=== PATIENT | female | born 1950 | race Caucasian/White ===

== ENCOUNTER 2019-07-29 17:50 | Inpatient (IN) | payer MEDICARE ==
[2019-07-29] MEDS: traZODone 50 MG TAB PO PRN (22:45)
[2019-07-29 23:54] LABS: Basophils # (Auto) 0.1 K/mm3 (0.0-0.1); Basophils % (Auto) 0.6 % (0.0-1.8); Eosinophils # (Auto) 0.1 K/mm3 (0.0-0.4); Eosinophils % (Auto) 0.8 % (0.0-4.3); Hematocrit 40.5 % (30.3-42.9); Hemoglobin 13.9 gm/dl (10.1-14.3); Lymphocytes # (Auto) 2.6 K/mm3 (1.2-5.4); Lymphocytes % (Auto) 25.1 % (13.4-35.0); Mean Corpuscular HGB Conc 34 % (30-34); Mean Corpuscular Volume 100 fl (79-97); Monocytes % (Auto) 9.8 % (0.0-7.3); Platelet Count 309 K/mm3 (140-440); Red Blood Count 4.04 M/mm3 (3.65-5.03); Red Cell Distribution Width 14.4 % (13.2-15.2)
[2019-07-30 01:19] LABS: Alanine Aminotransferase 12 units/L (7-56); Albumin 4.1 g/dL (3.9-5); BUN/Creatinine Ratio 18; Blood Urea Nitrogen 18 mg/dL (7-17); Calcium 9.4 mg/dL (8.4-10.2); Hemolysis Index 7
[2019-07-30 02:13] LABS: Chol/HDL Ratio 2.17 %; HDL Cholesterol 76 mg/dL (40-59); LDL Cholesterol,Direct 82 mg/dL (50-130)
--- NOTE | 2019-07-30 08:29 | History and Physical Report ---
GP History & Physical - History of Present Illness Date of admission: 07/29/19 Date of Examination: 07/30/19 Reason for Admission: Danger to self, Severe anxiety/depression Chief Complaint: Wanting to swallow a bottle of pills History of Present Illness: A 69yr old , retired female admitted to the unit from [facility] on a 1012 for suicidal ideation. Pt arrived on the unit at 0 07/29/19 accompanied by EMS staff. pt is ambulatory with steady gait; pt reported that she is here because of suicidal thoughts with plan to OD on medication. Pt is alert and oriented x4, , tearful but calm and cooperative, denies suicidal thought at this time, denies HI, denies A/V/H, pt has history of depression and stated that she stopped taking all her psych medication about 6months ago because they were so much and were not helping with her depression. pt stated she just want the right medication for her depression. Pt has hx of HTN, skin cancer, high cholesterol, and sleep Apnea, sleep with cpap machine but has not slept with it for 2days. Met with patient this morning. Pt started that she does not feel like herself and hasn't in a while. Pt then became tearful as she explained her reason for b shelbi admitted here. Pt stated that she was experiencing some issues with her son's regarding her granddaughter, which caused her to become stressed, angry and frustrated. Pt stated that she has no chace in her life, this being the reason for her wanting to OD on the medications. "Nov/Dec I was going to see a psychiatrist like I was really trying". Pt states that she no longer sees a Psychiatrist due to the fact that she was prescribed multiple medications that was not improving her symptoms at all and made her gain 40lbs. Pt list the meds that she have tried in the past as, Effexer, Trintellix, Seroquel, Paxil and trazodone. Pt stated after a while she decided to wean herself off the medication by cutting down weekly until she was finally off completely. Pt expresses that she understands the goal here is for her to get better and she plans to be complaint with her medications moving forward. Pt denies SI at this time, pt denies hallucination, paranoia. Pt states that she does have a gun and a permit to carry but gun is locked away and stored. Pt is sleeping well and appetite is well. Pt also discloses that she has a family history of mental health, pt smokes, denies drug use, and drinks occasionally. MSE Orientation: A&O x4 Affect: depressed Mood: congruent with affect Thought Process: organized Perceptions: reality Speech: normal Concentration: focused Motor activity: normal Level of consciousness: alert and aware Memory: intact Interaction: cooperative and pleasant Mini-Mental Status Exam: 30 out of 30 Legal Status: Voluntary Patient Problems: Current Active Problems MDD (major depressive disorder), recurrent episode, severe (Acute) Reaction to Hospitalization: Accepting Medications and Allergies Allergies Allergy/AdvReac Type Severity Reaction Status Date / Time codeine Allergy Unknown Verified 07/29/19 21:49 Home Medications Medication Instructions Recorded Confirmed Last Taken Type Levothyroxine 75 mcg PO DAILY 07/30/19 07/30/19 Unknown History Pravastatin 40 mg PO QHS 07/30/19 07/30/19 Unknown History amLODIPine 5 mg PO DAILY 07/30/19 07/30/19 Unknown History Active Meds: Active Medications Amlodipine Besylate (Amlodipine) 5 mg PO QDAY [facility] Clonazepam (Klonopin) 0.25 mg PO BID [facility] Divalproex Sodium (Depakote Er) 500 mg PO HS [facility] Duloxetine HCl (Cymbalta) 60 mg PO QDAY [facility] Hydroxyzine Pamoate (Vistaril) 50 mg PO Q6H PRN PRN Reason: Anxiety Levothyroxine Sodium (Synthroid) 75 mcg PO DAILY@0600 [facility] Melatonin (Melatonin) 10 mg PO QHS [facility] Pravastatin Sodium (Pravachol) 40 mg PO QHS [facility] Trazodone HCl (Desyrel) 50 mg PO QHS PRN PRN Reason: Insomnia Last Admin: 07/29/19 22:45 Dose: 50 mg Documented by: Substance History - Substance History Drug Use: none Hx Tobacco Use: Yes Alcohol Use: Yes Past psychiatric history - Past Medical History Past Medical History: hypertension, other (High Cholestorol, Sleep Apnea, Skin Cancer) Past Surgical History: No surgical history - past Psychiatric treatment and history Psych: Anxiety, Depression - Social History Social history: , lives with family, smoking Review of Systems Psychiatric: anxiety, suicidal ideation, depression, hopelessness, anxiety attacks, sadness/tearfullness Results - Results Labs/Vitals: Laboratory Last Values WBC 10.3 K/mm3 (4.5-11.0) 07/29/19 23:13 RBC 4.04 M/mm3 (3.65-5.03) 07/29/19 23:13 Hgb 13.9 gm/dl (10.1-14.3) 07/29/19 23:13 Hct 40.5 % (30.3-42.9) 07/29/19 23:13 MCV 100 fl (79-97) H 07/29/19 23:13 MCH 34 pg (28-32) H 07/29/19 23:13 MCHC 34 % (30-34) 07/29/19 23:13 RDW 14.4 % (13.2-15.2) 07/29/19 23:13 Plt Count 309 K/mm3 (140-440) 07/29/19 23:13 Lymph % (Auto) 25.1 % (13.4-35.0) 07/29/19 23:13 [place] % (Auto) 9.8 % (0.0-7.3) H 07/29/19 23:13 Eos % (Auto) 0.8 % (0.0-4.3) 07/29/19 23:13 Baso % (Auto) 0.6 % (0.0-1.8) 07/29/19 23:13 Lymph # 2.6 K/mm3 (1.2-5.4) 07/29/19 23:13 [place] # 1.0 K/mm3 (0.0-0.8) H 07/29/19 23:13 Eos # 0.1 K/mm3 (0.0-0.4) 07/29/19 23:13 Baso # 0.1 K/mm3 (0.0-0.1) 07/29/19 23:13 Seg Neutrophils % 63.7 % (40.0-70.0) 07/29/19 23:13 Seg Neutrophils # 6.6 K/mm3 (1.8-7.7) 07/29/19 23:13 Sodium 142 mmol/L (137-145) 07/29/19 23:13 Potassium 4.2 mmol/L (3.6-5.0) 07/29/19 23:13 Chloride 105.5 mmol/L (98-107) 07/29/19 23:13 Carbon Dioxide 22 mmol/L (22-30) 07/29/19 23:13 Anion Gap 19 mmol/L 07/29/19 23:13 BUN 18 mg/dL (7-17) H 07/29/19 23:13 Creatinine 1.0 mg/dL (0.7-1.2) 07/29/19 23:13 Estimated GFR 55 ml/min 07/29/19 23:13 BUN/Creatinine Ratio 18 % 07/29/19 23:13 Glucose 108 mg/dL (65-100) H 07/29/19 23:13 POC Glucose 109 (70-105) H 07/29/19 23:47 Hemoglobin A1c 5.5 % (4-6) 07/29/19 23:13 Calcium 9.4 mg/dL (8.4-10.2) 07/29/19 23:13 Total Bilirubin < 0.20 mg/dL (0.1-1.2) 07/29/19 23:13 AST 19 units/L (5-40) 07/29/19 23:13 ALT 12 units/L (7-56) 07/29/19 23:13 Alkaline Phosphatase 83 units/L (35-129) 07/29/19 23:13 Total Protein 6.8 g/dL (6.3-8.2) 07/29/19 23:13 Albumin 4.1 g/dL (3.9-5) 07/29/19 23:13 Albumin/Globulin Ratio 1.5 % 07/29/19 23:13 Triglycerides 131 mg/dL (2-149) 07/29/19 23:13 Cholesterol 165 mg/dL (50-199) 07/29/19 23:13 LDL Cholesterol Direct 82 mg/dL (50-130) 07/29/19 23:13 HDL Cholesterol 76 mg/dL (40-59) H 07/29/19 23:13 Cholesterol/HDL Ratio 2.17 % 07/29/19 23:13 Last Vital Signs Temp 97.7 F 07/29/19 22:06 Pulse 97 H 07/29/19 22:06 Resp 18 07/29/19 22:06 BP 125/79 07/29/19 22:06 Pulse Ox 97 07/29/19 22:06 Physical Examination - Constitutional Vitals: Vital Signs Temp Pulse Resp BP Pulse Ox 97.7 F 97 H 18 125/79 97 07/29/19 22:06 07/29/19 22:06 07/29/19 22:06 07/29/19 22:06 07/29/19 22:06 Temperature -Last 24 Hours Temperature 97.7 F General appearance: Present: no acute distress, well-nourished - EENT Eyes: Present: PERRL, EOM intact ENT: hearing intact, clear oral mucosa - Neck Neck: Present: supple, normal ROM - Respiratory Respiratory effort: normal Mental Status Exam - Vital signs Last Vital Signs Temp 97.7 F 07/29/19 22:06 Pulse 97 H 07/29/19 22:06 Resp 18 07/29/19 22:06 BP 125/79 07/29/19 22:06 Pulse Ox 97 07/29/19 22:06 - Exam Orientation: time, place, person Affect: depressed, anxious Mood: congruent with affect Thought Process: Intact Perceptions: none Speech: normal rate and pattern Concentration: focused Motor activity: normal Level of consciousness: alert Memory: Intact Sleep Symptoms: Insomnia Interaction: cooperative Mini mental status exam(if necessary): 24-30 Assessment and Plan - Psychiatric problem (1) MDD (major depressive disorder), recurrent episode, severe Current Visit: Yes Status: Acute plan to address problem: Patient will be admitted for inpatient psychiatric evaluation, medication adjustment and close monitoring The patient's behavior, mood, sleep and appetite will be closely monitored. Patient will be enrolled in individual and group therapeutic sessions and encouraged to attend. Patient will be provided with a safe and structured environment. Patient's physical health needs will be addressed by the Hospitalist. Social Assessment will be completed and the Standards Analyst will work with patient and family to ensure a suitable and safe disposition Medication adjustment will be made as clinically indicated The patient agreed on the treatment plan, understood the risk, benefit, alternative treatment, potential consequence of no treatment, and gave informed consent. Physician Certification - Certification Statement Physician Certification Statement: This is an acknowledgement statement that REGINA BURGOS is a 69 year old F who requires inpatient psychiatric admission for treatment which could reasonably be expected to improve the patient's condition for Depression Estimated period of time patient will need to remain in the hospital: 7 days Plan for post-hospital care: Out-patient care
[2019-07-30 09:16] LABS: Bilirubin,Urine NEG (Negative); Blood,Urine NEG (Negative); Color,Urine Yellow (Yellow); Mucus,Urine FEW /HPF; Protein,Urine <15 mg/dL mg/dL (Negative); Urobilinogen,Urine < 2.0 mg/dL (<2.0)
[2019-07-30] MEDS: amLODIPine 5 MG TAB PO SCH (09:59)
[2019-07-30] MEDS: DULoxetine 30 MG CAP PO SCH (10:00)
[2019-07-30] MEDS: clonazePAM 0.5 MG TAB PO SCH ×2 (10:00→21:05)
[2019-07-30] MEDS ORDERED: LEVOTHYROXINE 75 MCG PO SCH (10:00)
[2019-07-30] MEDS ORDERED: NON-FORMULARY EACH (Amlodipine 5 MG) PO SCH (10:00)
--- NOTE | 2019-07-30 13:53 | Consultation ---
History of Present Illness - Reason for Consult Consult date: 07/30/19 Hypertension, hyperlipidemia,hypothyroidism Requesting physician: MILENA ALICEA - History of Present Illness Patient is 69 yo with hypertension, hyperlipidemia, hypothyroidism. She was admitted because of depression, suicidal thoughts. The medical service has been consulted to manage co-morbidities, hypertension,hyperlipidemia, hypothyroidism. Currently, no chest pain, no shortness of breath. She states she has been compliant with her medications. Past History Past Medical History: hypertension, hyperlipidemia, hypothyroidism, other (High Cholestorol, Sleep Apnea, Skin Cancer) Past Surgical History: No surgical history Social history: , lives with family, smoking Family history: no significant family history Medications and Allergies Allergies Allergy/AdvReac Type Severity Reaction Status Date / Time codeine Allergy Unknown Verified 07/29/19 21:49 Home Medications Medication Instructions Recorded Confirmed Last Taken Type Levothyroxine 75 mcg PO DAILY 07/30/19 07/30/19 Unknown History Pravastatin 40 mg PO QHS 07/30/19 07/30/19 Unknown History amLODIPine 5 mg PO DAILY 07/30/19 07/30/19 Unknown History DULoxetine [Cymbalta] 60 mg PO QDAY #60 capsule 08/02/19 Unknown Rx Divalproex ER [Depakote ER] 500 mg PO HS #30 tablet 08/02/19 Unknown Rx Melatonin [Melatonin 5MG TAB] 10 mg PO QHS #30 tablet 08/02/19 Unknown Rx Nicotine [Habitrol] 21 mg TD QDAY #30 patch 08/02/19 Unknown Rx clonazePAM [KlonoPIN] 0.25 mg PO BID #14 tablet 08/02/19 Unknown Rx hydrOXYzine PAMOATE [Vistaril] 50 mg PO Q6H PRN #60 capsule 08/02/19 Unknown Rx traZODone [Desyrel] 50 mg PO QHS PRN #30 tablet 08/02/19 Unknown Rx Active Meds: Active Medications Amlodipine Besylate (Amlodipine) 5 mg PO QDAY [facility] Last Admin: 07/30/19 09:59 Dose: 5 mg Documented by: Clonazepam (Klonopin) 0.25 mg PO BID [facility] Last Admin: 07/30/19 10:00 Dose: 0.25 mg Documented by: Divalproex Sodium (Depakote Er) 500 mg PO HS [facility] Duloxetine HCl (Cymbalta) 60 mg PO QDAY [facility] Last Admin: 07/30/19 10:00 Dose: 60 mg Documented by: Hydroxyzine Pamoate (Vistaril) 50 mg PO Q6H PRN PRN Reason: Anxiety Last Admin: 07/30/19 10:04 Dose: 50 mg Documented by: Levothyroxine Sodium (Synthroid) 75 mcg PO DAILY@0600 [facility] Melatonin (Melatonin) 10 mg PO QHS [facility] Pravastatin Sodium (Pravachol) 40 mg PO QHS [facility] Trazodone HCl (Desyrel) 50 mg PO QHS PRN PRN Reason: Insomnia Last Admin: 07/29/19 22:45 Dose: 50 mg Documented by: Review of Systems All systems: negative (No fever, no headache, no chest pain, all other systems reviewed and are negative) Exam - Physical Exam Narrative exam: Gen: Not in acute distress, sitting up in bed HEENT: Normocephalic, atraumatic Neck: supple, no JVD Heart: S1 and S2 reg, no murmurs, rubs or gallop Lungs: Clear to auscultation bilaterally, Abd: soft, non tender, non distended, normal BS, Ext: No edema, no clubbing, no cyanosis Neuro: Awake, alert, oriented X 3, no focal neurological signs - Constitutional Vitals: Temp Pulse Resp BP Pulse Ox 98.5 F 80 18 126/69 97 07/30/19 09:20 07/30/19 09:59 07/30/19 09:20 07/30/19 09:59 07/30/19 09:20 Results - Labs CBC & Chem 7: 07/29/19 23:13 07/29/19 23:13 Labs: Abnormal lab results 07/29/19 07/29/19 07/29/19 Range/Units 23:13 23:13 23:47 MCV 100 H (79-97) fl MCH 34 H (28-32) pg [place] % (Auto) 9.8 H (0.0-7.3) % [place] # 1.0 H (0.0-0.8) K/mm3 BUN 18 H (7-17) mg/dL Glucose 108 H (65-100) mg/dL POC Glucose 109 H (70-105) HDL Cholesterol 76 H (40-59) mg/dL Assessment and Plan Major depression. Admitted to GeriPsych Unit Anti-depression meds per Psychiatrist Suicidal thoughts Hypertension Resumed Norvasc Hyperlipidemai On statin Hypothyroidism On Levothyroxine 75 mcg daily Full code status Thanks Dr. Alicea for consulting us. Will follow peripherally.
[2019-07-30] MEDS: NICOTINE 21 MG/24 HR PATCH TD SCH (16:11)
[2019-07-30] MEDS: LEVOTHYROXINE 75 MCG TAB PO SCH (19:31)
[2019-07-30] MEDS: traZODone 50 MG TAB PO PRN (21:05)
[2019-07-30] MEDS: DIVALPROEX ER 500 MG TAB PO SCH (21:05)
[2019-07-30] MEDS: PRAVASTATIN 40 MG TAB PO SCH (21:06)
[2019-07-30] MEDS: MELATONIN 5 MG TAB PO SCH (21:06)
[2019-07-30] MEDS ORDERED: NON-FORMULARY EACH (Pravastatin 40 MG) PO SCH (22:00)
[2019-07-31] MEDS: LEVOTHYROXINE 75 MCG TAB PO SCH (06:00)
--- NOTE | 2019-07-31 07:53 | Progress Note ---
Subjective Date of service: 07/31/19 Principal diagnosis: Severe Anxiety/Depression Subjective Comment: Pt presented as pleasant with good morning greetings. Pt stated that shes feels better and a little more calm. Pt denies SI and discussed TMS as a treatment option moving forward. Pt only concern was how long she would be here. Pt plans to continue seeing an outpatient psychiatrist once discharged. Pt stated that she already feel herself stabilizing from the medications she has received on the unit. PT is med complaint, denies SI/HI/AVH. Per nursing notes: Pt is experiencing frustration and anger with family when making calls home but appears to be pleasant and cooperative with staff. Pt is eating well and sleeping well throughout the night. MSE Orientation: A&O x4 Affect: Pleasant Mood: congruent with affect Thought Process: Organized Perceptions: Reality Speech: normal Concentration: focused Motor activity: normal Level of consciousness: alert Memory: intact Interaction: cooperative Objective - Criteria for Continued Treatment Criteria for Continued Treatment: Improving Level of Functioning - Mental Status Mental Status: Oriented x 3 - Objective Observation Participation Level: Full Assessment and Plan - Patient Problems (1) MDD (major depressive disorder), recurrent episode, severe Current Visit: Yes Status: Acute Plan to address problem: Patient will be admitted for inpatient psychiatric evaluation, medication adjustment and close monitoring The patient's behavior, mood, sleep and appetite will be closely monitored. Patient will be enrolled in individual and group therapeutic sessions and encouraged to attend. Patient will be provided with a safe and structured environment. Patient's physical health needs will be addressed by the Hospitalist. Social Assessment will be completed and the Flight Simulator Teacher will work with patient and family to ensure a suitable and safe disposition Medication adjustment will be made as clinically indicated The patient agreed on the treatment plan, understood the risk, benefit, alternative treatment, potential consequence of no treatment, and gave informed consent. Medications and Allergies Allergies Allergy/AdvReac Type Severity Reaction Status Date / Time codeine Allergy Unknown Verified 07/29/19 21:49 Home Medications Medication Instructions Recorded Confirmed Last Taken Type Levothyroxine 75 mcg PO DAILY 07/30/19 07/30/19 Unknown History Pravastatin 40 mg PO QHS 07/30/19 07/30/19 Unknown History amLODIPine 5 mg PO DAILY 07/30/19 07/30/19 Unknown History Active Meds: Active Medications Amlodipine Besylate (Amlodipine) 5 mg PO QDAY [facility] Last Admin: 07/30/19 09:59 Dose: 5 mg Documented by: Clonazepam (Klonopin) 0.25 mg PO BID [facility] Last Admin: 07/30/19 21:05 Dose: 0.25 mg Documented by: Divalproex Sodium (Depakote Er) 500 mg PO HS [facility] Last Admin: 07/30/19 21:05 Dose: 500 mg Documented by: Duloxetine HCl (Cymbalta) 60 mg PO QDAY [facility] Last Admin: 07/30/19 10:00 Dose: 60 mg Documented by: Hydroxyzine Pamoate (Vistaril) 50 mg PO Q6H PRN PRN Reason: Anxiety Last Admin: 07/30/19 10:04 Dose: 50 mg Documented by: Levothyroxine Sodium (Synthroid) 75 mcg PO DAILY@0600 [facility] Last Admin: 07/31/19 06:00 Dose: 75 mcg Documented by: Melatonin (Melatonin) 10 mg PO QHS [facility] Last Admin: 07/30/19 21:06 Dose: 10 mg Documented by: Nicotine (Habitrol) 21 mg TD QDAY [facility] Last Admin: 07/30/19 16:11 Dose: 21 mg Documented by: Pravastatin Sodium (Pravachol) 40 mg PO QHS [facility] Last Admin: 07/30/19 21:06 Dose: 40 mg Documented by: Trazodone HCl (Desyrel) 50 mg PO QHS PRN PRN Reason: Insomnia Last Admin: 07/30/19 21:05 Dose: 50 mg Documented by: Results - Results Labs/Vitals: Laboratory Last Values WBC 10.3 K/mm3 (4.5-11.0) 07/29/19 23:13 RBC 4.04 M/mm3 (3.65-5.03) 07/29/19 23:13 Hgb 13.9 gm/dl (10.1-14.3) 07/29/19 23:13 Hct 40.5 % (30.3-42.9) 07/29/19 23:13 MCV 100 fl (79-97) H 07/29/19 23:13 MCH 34 pg (28-32) H 07/29/19 23:13 MCHC 34 % (30-34) 07/29/19 23:13 RDW 14.4 % (13.2-15.2) 07/29/19 23:13 Plt Count 309 K/mm3 (140-440) 07/29/19 23:13 Lymph % (Auto) 25.1 % (13.4-35.0) 07/29/19 23:13 [place] % (Auto) 9.8 % (0.0-7.3) H 07/29/19 23:13 Eos % (Auto) 0.8 % (0.0-4.3) 07/29/19 23:13 Baso % (Auto) 0.6 % (0.0-1.8) 07/29/19 23:13 Lymph # 2.6 K/mm3 (1.2-5.4) 07/29/19 23:13 [place] # 1.0 K/mm3 (0.0-0.8) H 07/29/19 23:13 Eos # 0.1 K/mm3 (0.0-0.4) 07/29/19 23:13 Baso # 0.1 K/mm3 (0.0-0.1) 07/29/19 23:13 Seg Neutrophils % 63.7 % (40.0-70.0) 07/29/19 23:13 Seg Neutrophils # 6.6 K/mm3 (1.8-7.7) 07/29/19 23:13 Sodium 142 mmol/L (137-145) 07/29/19 23:13 Potassium 4.2 mmol/L (3.6-5.0) 07/29/19 23:13 Chloride 105.5 mmol/L (98-107) 07/29/19 23:13 Carbon Dioxide 22 mmol/L (22-30) 07/29/19 23:13 Anion Gap 19 mmol/L 07/29/19 23:13 BUN 18 mg/dL (7-17) H 07/29/19 23:13 Creatinine 1.0 mg/dL (0.7-1.2) 07/29/19 23:13 Estimated GFR 55 ml/min 07/29/19 23:13 BUN/Creatinine Ratio 18 % 07/29/19 23:13 Glucose 108 mg/dL (65-100) H 07/29/19 23:13 POC Glucose 109 (70-105) H 07/29/19 23:47 Hemoglobin A1c 5.5 % (4-6) 07/29/19 23:13 Calcium 9.4 mg/dL (8.4-10.2) 07/29/19 23:13 Total Bilirubin < 0.20 mg/dL (0.1-1.2) 07/29/19 23:13 AST 19 units/L (5-40) 07/29/19 23:13 ALT 12 units/L (7-56) 07/29/19 23:13 Alkaline Phosphatase 83 units/L (35-129) 07/29/19 23:13 Total Protein 6.8 g/dL (6.3-8.2) 07/29/19 23:13 Albumin 4.1 g/dL (3.9-5) 07/29/19 23:13 Albumin/Globulin Ratio 1.5 % 07/29/19 23:13 Triglycerides 131 mg/dL (2-149) 07/29/19 23:13 Cholesterol 165 mg/dL (50-199) 07/29/19 23:13 LDL Cholesterol Direct 82 mg/dL (50-130) 07/29/19 23:13 HDL Cholesterol 76 mg/dL (40-59) H 07/29/19 23:13 Cholesterol/HDL Ratio 2.17 % 07/29/19 23:13 Urine Color Yellow (Yellow) 07/30/19 08:05 Urine Turbidity Clear (Clear) 07/30/19 08:05 Urine pH 6.0 (5.0-7.0) 07/30/19 08:05 Ur Specific [place] 1.011 (1.003-1.030) 07/30/19 08:05 Urine Protein <15 mg/dl mg/dL (Negative) 07/30/19 08:05 Urine Glucose (UA) Neg mg/dL (Negative) 07/30/19 08:05 Urine Ketones Neg mg/dL (Negative) 07/30/19 08:05 Urine Blood Neg (Negative) 07/30/19 08:05 Urine Nitrite Neg (Negative) 07/30/19 08:05 Urine Bilirubin Neg (Negative) 07/30/19 08:05 Urine Urobilinogen < 2.0 mg/dL (<2.0) 07/30/19 08:05 Ur Leukocyte Esterase Neg (Negative) 07/30/19 08:05 Urine WBC (Auto) 1.0 /HPF (0.0-6.0) 07/30/19 08:05 Urine RBC (Auto) 1.0 /HPF (0.0-6.0) 07/30/19 08:05 U Epithel Cells (Auto) < 1.0 /HPF (0-13.0) 07/30/19 08:05 Urine Mucus Few /HPF 07/30/19 08:05 Last Vital Signs Temp 98.5 F 07/30/19 09:20 Pulse 80 07/30/19 09:59 Resp 18 07/30/19 09:20 BP 126/69 07/30/19 09:59 Pulse Ox 97 07/30/19 09:20
[2019-07-31] MEDS: amLODIPine 5 MG TAB PO SCH (09:33)
[2019-07-31] MEDS: clonazePAM 0.5 MG TAB PO SCH ×2 (09:34→21:02)
[2019-07-31] MEDS: DULoxetine 30 MG CAP PO SCH (09:35)
[2019-07-31] MEDS: NICOTINE 21 MG/24 HR PATCH TD SCH (09:35)
[2019-07-31] MEDS: PRAVASTATIN 40 MG TAB PO SCH (21:03)
[2019-07-31] MEDS: traZODone 50 MG TAB PO PRN (21:03)
[2019-07-31] MEDS: MELATONIN 5 MG TAB PO SCH (21:03)
[2019-07-31] MEDS: DIVALPROEX ER 500 MG TAB PO SCH (21:03)
[2019-08-01] MEDS: LEVOTHYROXINE 75 MCG TAB PO SCH (06:18)
--- NOTE | 2019-08-01 08:36 | Progress Note ---
Subjective Date of service: 08/01/19 Principal diagnosis: Severe Anxiety/Depression Subjective Comment: Patient seen in her room this morning. Patient reports that she gets very frustrated when things aren't clean and it triggers her condition. "I think I had a light bulb moment, I'm very organized so when things aren't a certain way it frustrates me. Like my proper is a cluster fuck". Patient when on stating that the problems with her son and his comes from their lack of cleanliness, not defrosting her freezer or picking her up in a dirty car. She also stated that she slept a lot better, is thinking much clearer and is not frustrated anymore. Pt appetite is good, she's eating well, med compliant and denies side effects. Per nursing note: Patient is alert and oriented x4, calm and cooperative, interacting well with peers and staff, very pleasant, consumed 100% of bed time snacks, slept well throughout the night for 8+ hours, compliant with medication, trazodone 50mg po given at bedtime for sleep as requested by patient, patient denies SI/HI, denies A/V/H, MSE Orientation: A&O x4 Affect: Pleasant Mood: congruent with affect Thought Process: Organized Perceptions: Reality Speech: normal Concentration: focused Motor activity: normal Level of consciousness: alert Memory: intact Interaction: cooperative Objective - Criteria for Continued Treatment Criteria for Continued Treatment: Improving Level of Functioning - Mental Status Mental Status: Oriented x 3 - Objective Observation Participation Level: Full Assessment and Plan - Patient Problems (1) MDD (major depressive disorder), recurrent episode, severe Current Visit: Yes Status: Acute Plan to address problem: Patient will be admitted for inpatient psychiatric evaluation, medication adjustment and close monitoring The patient's behavior, mood, sleep and appetite will be closely monitored. Patient will be enrolled in individual and group therapeutic sessions and encouraged to attend. Patient will be provided with a safe and structured environment. Patient's physical health needs will be addressed by the Hospitalist. Social Assessment will be completed and the Legal Support Specialist will work with patient and family to ensure a suitable and safe disposition Medication adjustment will be made as clinically indicated The patient agreed on the treatment plan, understood the risk, benefit, alternative treatment, potential consequence of no treatment, and gave informed consent. Medications and Allergies Allergies Allergy/AdvReac Type Severity Reaction Status Date / Time codeine Allergy Unknown Verified 07/29/19 21:49 Home Medications Medication Instructions Recorded Confirmed Last Taken Type Levothyroxine 75 mcg PO DAILY 07/30/19 07/30/19 Unknown History Pravastatin 40 mg PO QHS 07/30/19 07/30/19 Unknown History amLODIPine 5 mg PO DAILY 07/30/19 07/30/19 Unknown History Active Meds: Active Medications Amlodipine Besylate (Amlodipine) 5 mg PO QDAY [facility] Last Admin: 07/31/19 09:33 Dose: 5 mg Documented by: Clonazepam (Klonopin) 0.25 mg PO BID [facility] Last Admin: 07/31/19 21:02 Dose: 0.25 mg Documented by: Divalproex Sodium (Depakote Er) 500 mg PO [facility] Last Admin: 07/31/19 21:03 Dose: 500 mg Documented by: Duloxetine HCl (Cymbalta) 60 mg PO QDAY [facility] Last Admin: 07/31/19 09:35 Dose: 60 mg Documented by: Hydroxyzine Pamoate (Vistaril) 50 mg PO Q6H PRN PRN Reason: Anxiety Last Admin: 07/30/19 10:04 Dose: 50 mg Documented by: Levothyroxine Sodium (Synthroid) 75 mcg PO DAILY@0600 [facility] Last Admin: 08/01/19 06:18 Dose: 75 mcg Documented by: Melatonin (Melatonin) 10 mg PO QHS [facility] Last Admin: 07/31/19 21:03 Dose: 10 mg Documented by: Nicotine (Habitrol) 21 mg TD QDAY [facility] Last Admin: 07/31/19 09:35 Dose: 21 mg Documented by: Pravastatin Sodium (Pravachol) 40 mg PO QHS [facility] Last Admin: 07/31/19 21:03 Dose: 40 mg Documented by: Trazodone HCl (Desyrel) 50 mg PO QHS PRN PRN Reason: Insomnia Last Admin: 07/31/19 21:03 Dose: 50 mg Documented by: Results - Results Labs/Vitals: Laboratory Last Values WBC 10.3 K/mm3 (4.5-11.0) 07/29/19 23:13 RBC 4.04 M/mm3 (3.65-5.03) 07/29/19 23:13 Hgb 13.9 gm/dl (10.1-14.3) 07/29/19 23:13 Hct 40.5 % (30.3-42.9) 07/29/19 23:13 MCV 100 fl (79-97) H 07/29/19 23:13 MCH 34 pg (28-32) H 07/29/19 23:13 MCHC 34 % (30-34) 07/29/19 23:13 RDW 14.4 % (13.2-15.2) 07/29/19 23:13 Plt Count 309 K/mm3 (140-440) 07/29/19 23:13 Lymph % (Auto) 25.1 % (13.4-35.0) 07/29/19 23:13 [place] % (Auto) 9.8 % (0.0-7.3) H 07/29/19 23:13 Eos % (Auto) 0.8 % (0.0-4.3) 07/29/19 23:13 Baso % (Auto) 0.6 % (0.0-1.8) 07/29/19 23:13 Lymph # 2.6 K/mm3 (1.2-5.4) 07/29/19 23:13 [place] # 1.0 K/mm3 (0.0-0.8) H 07/29/19 23:13 Eos # 0.1 K/mm3 (0.0-0.4) 07/29/19 23:13 Baso # 0.1 K/mm3 (0.0-0.1) 07/29/19 23:13 Seg Neutrophils % 63.7 % (40.0-70.0) 07/29/19 23:13 Seg Neutrophils # 6.6 K/mm3 (1.8-7.7) 07/29/19 23:13 Sodium 142 mmol/L (137-145) 07/29/19 23:13 Potassium 4.2 mmol/L (3.6-5.0) 07/29/19 23:13 Chloride 105.5 mmol/L (98-107) 07/29/19 23:13 Carbon Dioxide 22 mmol/L (22-30) 07/29/19 23:13 Anion Gap 19 mmol/L 07/29/19 23:13 BUN 18 mg/dL (7-17) H 07/29/19 23:13 Creatinine 1.0 mg/dL (0.7-1.2) 07/29/19 23:13 Estimated GFR 55 ml/min 07/29/19 23:13 BUN/Creatinine Ratio 18 % 07/29/19 23:13 Glucose 108 mg/dL (65-100) H 07/29/19 23:13 POC Glucose 109 (70-105) H 07/29/19 23:47 Hemoglobin A1c 5.5 % (4-6) 07/29/19 23:13 Calcium 9.4 mg/dL (8.4-10.2) 07/29/19 23:13 Total Bilirubin < 0.20 mg/dL (0.1-1.2) 07/29/19 23:13 AST 19 units/L (5-40) 07/29/19 23:13 ALT 12 units/L (7-56) 07/29/19 23:13 Alkaline Phosphatase 83 units/L (35-129) 07/29/19 23:13 Total Protein 6.8 g/dL (6.3-8.2) 07/29/19 23:13 Albumin 4.1 g/dL (3.9-5) 07/29/19 23:13 Albumin/Globulin Ratio 1.5 % 07/29/19 23:13 Triglycerides 131 mg/dL (2-149) 07/29/19 23:13 Cholesterol 165 mg/dL (50-199) 07/29/19 23:13 LDL Cholesterol Direct 82 mg/dL (50-130) 07/29/19 23:13 HDL Cholesterol 76 mg/dL (40-59) H 07/29/19 23:13 Cholesterol/HDL Ratio 2.17 % 07/29/19 23:13 Urine Color Yellow (Yellow) 07/30/19 08:05 Urine Turbidity Clear (Clear) 07/30/19 08:05 Urine pH 6.0 (5.0-7.0) 07/30/19 08:05 Ur Specific [place] 1.011 (1.003-1.030) 07/30/19 08:05 Urine Protein <15 mg/dl mg/dL (Negative) 07/30/19 08:05 Urine Glucose (UA) Neg mg/dL (Negative) 07/30/19 08:05 Urine Ketones Neg mg/dL (Negative) 07/30/19 08:05 Urine Blood Neg (Negative) 07/30/19 08:05 Urine Nitrite Neg (Negative) 07/30/19 08:05 Urine Bilirubin Neg (Negative) 07/30/19 08:05 Urine Urobilinogen < 2.0 mg/dL (<2.0) 07/30/19 08:05 Ur Leukocyte Esterase Neg (Negative) 07/30/19 08:05 Urine WBC (Auto) 1.0 /HPF (0.0-6.0) 07/30/19 08:05 Urine RBC (Auto) 1.0 /HPF (0.0-6.0) 07/30/19 08:05 U Epithel Cells (Auto) < 1.0 /HPF (0-13.0) 07/30/19 08:05 Urine Mucus Few /HPF 07/30/19 08:05 Last Vital Signs Temp 97.5 F L 07/31/19 19:40 Pulse 90 07/31/19 19:40 Resp 20 07/31/19 19:40 BP 128/79 07/31/19 19:40 Pulse Ox 96 07/31/19 19:40
[2019-08-01] MEDS: DULoxetine 30 MG CAP PO SCH (10:04)
[2019-08-01] MEDS: clonazePAM 0.5 MG TAB PO SCH ×2 (10:05→21:07)
[2019-08-01] MEDS: amLODIPine 5 MG TAB PO SCH (10:05)
[2019-08-01] MEDS: NICOTINE 21 MG/24 HR PATCH TD SCH (10:06)
[2019-08-01] MEDS: DOCUSATE SODIUM 100 MG CAP PO SCH (21:06)
[2019-08-01] MEDS: PRAVASTATIN 40 MG TAB PO SCH (21:06)
[2019-08-01] MEDS: DIVALPROEX ER 500 MG TAB PO SCH (21:06)
[2019-08-01] MEDS: MELATONIN 5 MG TAB PO SCH (21:07)
[2019-08-02] MEDS: LEVOTHYROXINE 75 MCG TAB PO SCH (06:05)
[2019-08-02] MEDS: amLODIPine 5 MG TAB PO SCH (10:31)
[2019-08-02] MEDS: clonazePAM 0.5 MG TAB PO SCH ×2 (10:31→21:38)
[2019-08-02] MEDS: NICOTINE 21 MG/24 HR PATCH TD SCH (10:31)
[2019-08-02] MEDS: DOCUSATE SODIUM 100 MG CAP PO SCH ×2 (10:31→21:38)
[2019-08-02] MEDS: DULoxetine 30 MG CAP PO SCH (10:37)
--- NOTE | 2019-08-02 12:40 | Progress Note ---
Subjective Date of service: 08/02/19 Principal diagnosis: Severe Anxiety/Depression Subjective Comment: Patient seen in her room this morning. Patient reports mood is improving. She feels that her medications are beneficial. She denies SI/HI/AVH. Pt appetite is good, she's eating well, med compliant and denies side effects. Per nursing note: pt is A&O x4, appropriate, calm, cooperative w/ staff and compliant w/ meds. pt denies SI and AVH. pt is engaged during groups and is social with others. pt is independent w/ care and has a steady gait. pt has no voiced complaints to note at this time. will continue to monitor. MSE Orientation: A&O x4 Affect: Pleasant Mood: congruent with affect Thought Process: Organized Perceptions: wnl Speech: normal Concentration: focused Motor activity: normal Level of consciousness: alert Memory: intact Interaction: cooperative Objective - Criteria for Continued Treatment Criteria for Continued Treatment: Improving Level of Functioning, Stablizing Level of Functioning, Improving Emotional/Socia - Mental Status Mental Status: Alert - Objective Observation Participation Level: Full Assessment and Plan - Patient Problems (1) MDD (major depressive disorder), recurrent episode, severe Current Visit: Yes Status: Acute Plan to address problem: Patient will be admitted for inpatient psychiatric evaluation, medication adjustment and close monitoring The patient's behavior, mood, sleep and appetite will be closely monitored. Patient will be enrolled in individual and group therapeutic sessions and encouraged to attend. Patient will be provided with a safe and structured environment. Patient's physical health needs will be addressed by the Hospitalist. Social Assessment will be completed and the Instructional Support Assistant will work with patient and family to ensure a suitable and safe disposition Medication adjustment will be made as clinically indicated The patient agreed on the treatment plan, understood the risk, benefit, alternative treatment, potential consequence of no treatment, and gave informed consent. Medications and Allergies Allergies Allergy/AdvReac Type Severity Reaction Status Date / Time codeine Allergy Unknown Verified 07/29/19 21:49 Home Medications Medication Instructions Recorded Confirmed Last Taken Type Levothyroxine 75 mcg PO DAILY 07/30/19 07/30/19 Unknown History Pravastatin 40 mg PO QHS 07/30/19 07/30/19 Unknown History amLODIPine 5 mg PO DAILY 07/30/19 07/30/19 Unknown History Active Meds: Active Medications Amlodipine Besylate (Amlodipine) 5 mg PO QDAY [facility] Last Admin: 08/02/19 10:31 Dose: 5 mg Documented by: Clonazepam (Klonopin) 0.25 mg PO BID [facility] Last Admin: 08/02/19 10:31 Dose: 0.25 mg Documented by: Divalproex Sodium (Depakote Er) 500 mg PO [facility] Last Admin: 08/01/19 21:06 Dose: 500 mg Documented by: Docusate Sodium (Colace) 100 mg PO BID [facility] Last Admin: 08/02/19 10:31 Dose: 100 mg Documented by: Duloxetine HCl (Cymbalta) 60 mg PO QDAY [facility] Last Admin: 08/02/19 10:37 Dose: 60 mg Documented by: Hydroxyzine Pamoate (Vistaril) 50 mg PO Q6H PRN PRN Reason: Anxiety Last Admin: 07/30/19 10:04 Dose: 50 mg Documented by: Levothyroxine Sodium (Synthroid) 75 mcg PO DAILY@0600 [facility] Last Admin: 08/02/19 06:05 Dose: 75 mcg Documented by: Melatonin (Melatonin) 10 mg PO QHS [facility] Last Admin: 08/01/19 21:07 Dose: 10 mg Documented by: Nicotine (Habitrol) 21 mg TD QDAY [facility] Last Admin: 08/02/19 10:31 Dose: 21 mg Documented by: Pravastatin Sodium (Pravachol) 40 mg PO QHS [facility] Last Admin: 08/01/19 21:06 Dose: 40 mg Documented by: Trazodone HCl (Desyrel) 50 mg PO QHS PRN PRN Reason: Insomnia Last Admin: 07/31/19 21:03 Dose: 50 mg Documented by: Results - Results Labs/Vitals: Laboratory Last Values WBC 10.3 K/mm3 (4.5-11.0) 07/29/19 23:13 RBC 4.04 M/mm3 (3.65-5.03) 07/29/19 23:13 Hgb 13.9 gm/dl (10.1-14.3) 07/29/19 23:13 Hct 40.5 % (30.3-42.9) 07/29/19 23:13 MCV 100 fl (79-97) H 07/29/19 23:13 MCH 34 pg (28-32) H 07/29/19 23:13 MCHC 34 % (30-34) 07/29/19 23:13 RDW 14.4 % (13.2-15.2) 07/29/19 23:13 Plt Count 309 K/mm3 (140-440) 07/29/19 23:13 Lymph % (Auto) 25.1 % (13.4-35.0) 07/29/19 23:13 [place] % (Auto) 9.8 % (0.0-7.3) H 07/29/19 23:13 Eos % (Auto) 0.8 % (0.0-4.3) 07/29/19 23:13 Baso % (Auto) 0.6 % (0.0-1.8) 07/29/19 23:13 Lymph # 2.6 K/mm3 (1.2-5.4) 07/29/19 23:13 [place] # 1.0 K/mm3 (0.0-0.8) H 07/29/19 23:13 Eos # 0.1 K/mm3 (0.0-0.4) 07/29/19 23:13 Baso # 0.1 K/mm3 (0.0-0.1) 07/29/19 23:13 Seg Neutrophils % 63.7 % (40.0-70.0) 07/29/19 23:13 Seg Neutrophils # 6.6 K/mm3 (1.8-7.7) 07/29/19 23:13 Sodium 142 mmol/L (137-145) 07/29/19 23:13 Potassium 4.2 mmol/L (3.6-5.0) 07/29/19 23:13 Chloride 105.5 mmol/L (98-107) 07/29/19 23:13 Carbon Dioxide 22 mmol/L (22-30) 07/29/19 23:13 Anion Gap 19 mmol/L 07/29/19 23:13 BUN 18 mg/dL (7-17) H 07/29/19 23:13 Creatinine 1.0 mg/dL (0.7-1.2) 07/29/19 23:13 Estimated GFR 55 ml/min 07/29/19 23:13 BUN/Creatinine Ratio 18 % 07/29/19 23:13 Glucose 108 mg/dL (65-100) H 07/29/19 23:13 POC Glucose 109 (70-105) H 07/29/19 23:47 Hemoglobin A1c 5.5 % (4-6) 07/29/19 23:13 Calcium 9.4 mg/dL (8.4-10.2) 07/29/19 23:13 Total Bilirubin < 0.20 mg/dL (0.1-1.2) 07/29/19 23:13 AST 19 units/L (5-40) 07/29/19 23:13 ALT 12 units/L (7-56) 07/29/19 23:13 Alkaline Phosphatase 83 units/L (35-129) 07/29/19 23:13 Total Protein 6.8 g/dL (6.3-8.2) 07/29/19 23:13 Albumin 4.1 g/dL (3.9-5) 07/29/19 23:13 Albumin/Globulin Ratio 1.5 % 07/29/19 23:13 Triglycerides 131 mg/dL (2-149) 07/29/19 23:13 Cholesterol 165 mg/dL (50-199) 07/29/19 23:13 LDL Cholesterol Direct 82 mg/dL (50-130) 07/29/19 23:13 HDL Cholesterol 76 mg/dL (40-59) H 07/29/19 23:13 Cholesterol/HDL Ratio 2.17 % 07/29/19 23:13 Urine Color Yellow (Yellow) 07/30/19 08:05 Urine Turbidity Clear (Clear) 07/30/19 08:05 Urine pH 6.0 (5.0-7.0) 07/30/19 08:05 Ur Specific [place] 1.011 (1.003-1.030) 07/30/19 08:05 Urine Protein <15 mg/dl mg/dL (Negative) 07/30/19 08:05 Urine Glucose (UA) Neg mg/dL (Negative) 07/30/19 08:05 Urine Ketones Neg mg/dL (Negative) 07/30/19 08:05 Urine Blood Neg (Negative) 07/30/19 08:05 Urine Nitrite Neg (Negative) 07/30/19 08:05 Urine Bilirubin Neg (Negative) 07/30/19 08:05 Urine Urobilinogen < 2.0 mg/dL (<2.0) 07/30/19 08:05 Ur Leukocyte Esterase Neg (Negative) 07/30/19 08:05 Urine WBC (Auto) 1.0 /HPF (0.0-6.0) 07/30/19 08:05 Urine RBC (Auto) 1.0 /HPF (0.0-6.0) 07/30/19 08:05 U Epithel Cells (Auto) < 1.0 /HPF (0-13.0) 07/30/19 08:05 Urine Mucus Few /HPF 07/30/19 08:05 Last Vital Signs Temp 98.4 F 08/02/19 07:58 Pulse 76 08/02/19 10:31 Resp 18 08/01/19 19:07 BP 146/81 08/02/19 10:31 Pulse Ox 98 08/02/19 07:58
[2019-08-02] MEDS: MELATONIN 5 MG TAB PO SCH (21:38)
[2019-08-02] MEDS: DIVALPROEX ER 500 MG TAB PO SCH (21:38)
[2019-08-02] MEDS: PRAVASTATIN 40 MG TAB PO SCH (21:38)
[2019-08-03] MEDS: LEVOTHYROXINE 75 MCG TAB PO SCH (07:07)
[2019-08-03] MEDS: DULoxetine 30 MG CAP PO SCH (10:58)
[2019-08-03] MEDS: DOCUSATE SODIUM 100 MG CAP PO SCH ×2 (10:59→21:12)
[2019-08-03] MEDS: amLODIPine 5 MG TAB PO SCH (10:59)
[2019-08-03] MEDS: clonazePAM 0.5 MG TAB PO SCH ×2 (10:59→21:12)
[2019-08-03] MEDS: NICOTINE 21 MG/24 HR PATCH TD SCH (11:06)
--- NOTE | 2019-08-03 14:21 | Progress Note ---
Subjective Date of service: 08/03/19 Principal diagnosis: Severe Anxiety/Depression Subjective Comment: Patient seen in her room this morning. Patient reports good and stable mood. She denies SI/HI/AVH. Pt appetite is good, she's eating well, med compliant and denies side effects. Per nursing note: Pt is compliant with routine meds, appetite good and no complaints of pain. She is focused on her discharge and pt is more pleasant and helpful to other peers. No behavior issues. Will continue to monitor q 15 min for safety. Original Note: Pt is observed in the activity room, she is a/o x 4 mood and affect is pleasant and interacts with staff and peers. She is preoccupied with discharge and denies any thoughts of SI. Will continue to monitor q 15 min for safety. MSE Orientation: A&O x4 Affect: Pleasant Mood: congruent with affect Thought Process: Organized Perceptions: wnl Speech: normal Concentration: focused Motor activity: normal Level of consciousness: alert Memory: intact Interaction: cooperative Objective - Criteria for Continued Treatment Criteria for Continued Treatment: Stablizing Level of Functioning - Mental Status Mental Status: Alert - Objective Observation Participation Level: Full Assessment and Plan - Patient Problems (1) MDD (major depressive disorder), recurrent episode, severe Current Visit: Yes Status: Acute Plan to address problem: Patient will be admitted for inpatient psychiatric evaluation, medication adjustment and close monitoring The patient's behavior, mood, sleep and appetite will be closely monitored. Patient will be enrolled in individual and group therapeutic sessions and encouraged to attend. Patient will be provided with a safe and structured environment. Patient's physical health needs will be addressed by the Hospitalist. Social Assessment will be completed and the Lsat Instructor will work with patient and family to ensure a suitable and safe disposition Medication adjustment will be made as clinically indicated The patient agreed on the treatment plan, understood the risk, benefit, alternative treatment, potential consequence of no treatment, and gave informed consent. Medications and Allergies Allergies Allergy/AdvReac Type Severity Reaction Status Date / Time codeine Allergy Unknown Verified 07/29/19 21:49 Home Medications Medication Instructions Recorded Confirmed Last Taken Type Levothyroxine 75 mcg PO DAILY 07/30/19 07/30/19 Unknown History Pravastatin 40 mg PO QHS 07/30/19 07/30/19 Unknown History amLODIPine 5 mg PO DAILY 07/30/19 07/30/19 Unknown History DULoxetine [Cymbalta] 60 mg PO QDAY #60 capsule 08/02/19 Unknown Rx Divalproex ER [Depakote ER] 500 mg PO HS #30 tablet 08/02/19 Unknown Rx Melatonin [Melatonin 5MG TAB] 10 mg PO QHS #30 tablet 08/02/19 Unknown Rx Nicotine [Habitrol] 21 mg TD QDAY #30 patch 08/02/19 Unknown Rx clonazePAM [KlonoPIN] 0.25 mg PO BID #14 tablet 08/02/19 Unknown Rx hydrOXYzine PAMOATE [Vistaril] 50 mg PO Q6H PRN #60 capsule 08/02/19 Unknown Rx traZODone [Desyrel] 50 mg PO QHS PRN #30 tablet 08/02/19 Unknown Rx Active Meds: Active Medications Amlodipine Besylate (Amlodipine) 5 mg PO QDAY [facility] Last Admin: 08/03/19 10:59 Dose: 5 mg Documented by: Clonazepam (Klonopin) 0.25 mg PO BID [facility] Last Admin: 08/03/19 10:59 Dose: 0.25 mg Documented by: Divalproex Sodium (Depakote Er) 500 mg PO [facility] Last Admin: 08/02/19 21:38 Dose: 500 mg Documented by: Docusate Sodium (Colace) 100 mg PO BID [facility] Last Admin: 08/03/19 10:59 Dose: 100 mg Documented by: Duloxetine HCl (Cymbalta) 60 mg PO QDAY [facility] Last Admin: 08/03/19 10:58 Dose: 60 mg Documented by: Hydroxyzine Pamoate (Vistaril) 50 mg PO Q6H PRN PRN Reason: Anxiety Last Admin: 07/30/19 10:04 Dose: 50 mg Documented by: Levothyroxine Sodium (Synthroid) 75 mcg PO DAILY@0600 [facility] Last Admin: 08/03/19 07:07 Dose: 75 mcg Documented by: Melatonin (Melatonin) 10 mg PO QHS [facility] Last Admin: 08/02/19 21:38 Dose: 10 mg Documented by: Nicotine (Habitrol) 21 mg TD QDAY [facility] Last Admin: 08/03/19 11:06 Dose: 21 mg Documented by: Pravastatin Sodium (Pravachol) 40 mg PO QHS [facility] Last Admin: 08/02/19 21:38 Dose: 40 mg Documented by: Trazodone HCl (Desyrel) 50 mg PO QHS PRN PRN Reason: Insomnia Last Admin: 07/31/19 21:03 Dose: 50 mg Documented by: Results - Results Labs/Vitals: Laboratory Last Values WBC 10.3 K/mm3 (4.5-11.0) 07/29/19 23:13 RBC 4.04 M/mm3 (3.65-5.03) 07/29/19 23:13 Hgb 13.9 gm/dl (10.1-14.3) 07/29/19 23:13 Hct 40.5 % (30.3-42.9) 07/29/19 23:13 MCV 100 fl (79-97) H 07/29/19 23:13 MCH 34 pg (28-32) H 07/29/19 23:13 MCHC 34 % (30-34) 07/29/19 23:13 RDW 14.4 % (13.2-15.2) 07/29/19 23:13 Plt Count 309 K/mm3 (140-440) 07/29/19 23:13 Lymph % (Auto) 25.1 % (13.4-35.0) 07/29/19 23:13 [place] % (Auto) 9.8 % (0.0-7.3) H 07/29/19 23:13 Eos % (Auto) 0.8 % (0.0-4.3) 07/29/19 23:13 Baso % (Auto) 0.6 % (0.0-1.8) 07/29/19 23:13 Lymph # 2.6 K/mm3 (1.2-5.4) 07/29/19 23:13 [place] # 1.0 K/mm3 (0.0-0.8) H 07/29/19 23:13 Eos # 0.1 K/mm3 (0.0-0.4) 07/29/19 23:13 Baso # 0.1 K/mm3 (0.0-0.1) 07/29/19 23:13 Seg Neutrophils % 63.7 % (40.0-70.0) 07/29/19 23:13 Seg Neutrophils # 6.6 K/mm3 (1.8-7.7) 07/29/19 23:13 Sodium 142 mmol/L (137-145) 07/29/19 23:13 Potassium 4.2 mmol/L (3.6-5.0) 07/29/19 23:13 Chloride 105.5 mmol/L (98-107) 07/29/19 23:13 Carbon Dioxide 22 mmol/L (22-30) 07/29/19 23:13 Anion Gap 19 mmol/L 07/29/19 23:13 BUN 18 mg/dL (7-17) H 07/29/19 23:13 Creatinine 1.0 mg/dL (0.7-1.2) 07/29/19 23:13 Estimated GFR 55 ml/min 07/29/19 23:13 BUN/Creatinine Ratio 18 % 07/29/19 23:13 Glucose 108 mg/dL (65-100) H 07/29/19 23:13 POC Glucose 109 (70-105) H 07/29/19 23:47 Hemoglobin A1c 5.5 % (4-6) 07/29/19 23:13 Calcium 9.4 mg/dL (8.4-10.2) 07/29/19 23:13 Total Bilirubin < 0.20 mg/dL (0.1-1.2) 07/29/19 23:13 AST 19 units/L (5-40) 07/29/19 23:13 ALT 12 units/L (7-56) 07/29/19 23:13 Alkaline Phosphatase 83 units/L (35-129) 07/29/19 23:13 Total Protein 6.8 g/dL (6.3-8.2) 07/29/19 23:13 Albumin 4.1 g/dL (3.9-5) 07/29/19 23:13 Albumin/Globulin Ratio 1.5 % 07/29/19 23:13 Triglycerides 131 mg/dL (2-149) 07/29/19 23:13 Cholesterol 165 mg/dL (50-199) 07/29/19 23:13 LDL Cholesterol Direct 82 mg/dL (50-130) 07/29/19 23:13 HDL Cholesterol 76 mg/dL (40-59) H 07/29/19 23:13 Cholesterol/HDL Ratio 2.17 % 07/29/19 23:13 Urine Color Yellow (Yellow) 07/30/19 08:05 Urine Turbidity Clear (Clear) 07/30/19 08:05 Urine pH 6.0 (5.0-7.0) 07/30/19 08:05 Ur Specific [place] 1.011 (1.003-1.030) 07/30/19 08:05 Urine Protein <15 mg/dl mg/dL (Negative) 07/30/19 08:05 Urine Glucose (UA) Neg mg/dL (Negative) 07/30/19 08:05 Urine Ketones Neg mg/dL (Negative) 07/30/19 08:05 Urine Blood Neg (Negative) 07/30/19 08:05 Urine Nitrite Neg (Negative) 07/30/19 08:05 Urine Bilirubin Neg (Negative) 07/30/19 08:05 Urine Urobilinogen < 2.0 mg/dL (<2.0) 07/30/19 08:05 Ur Leukocyte Esterase Neg (Negative) 07/30/19 08:05 Urine WBC (Auto) 1.0 /HPF (0.0-6.0) 07/30/19 08:05 Urine RBC (Auto) 1.0 /HPF (0.0-6.0) 07/30/19 08:05 U Epithel Cells (Auto) < 1.0 /HPF (0-13.0) 07/30/19 08:05 Urine Mucus Few /HPF 07/30/19 08:05 Last Vital Signs Temp 98.4 F 08/03/19 09:35 Pulse 67 08/03/19 10:59 Resp 16 08/03/19 09:35 BP 136/80 08/03/19 10:59 Pulse Ox 95 08/03/19 09:35
[2019-08-03] MEDS: DIVALPROEX ER 500 MG TAB PO SCH (21:12)
[2019-08-03] MEDS: MELATONIN 5 MG TAB PO SCH (21:13)
[2019-08-03] MEDS: traZODone 50 MG TAB PO PRN (21:14)
[2019-08-03] MEDS: PRAVASTATIN 40 MG TAB PO SCH (21:14)
[2019-08-04] MEDS: LEVOTHYROXINE 75 MCG TAB PO SCH (05:39)
[2019-08-04 10:10] VITALS: BP 122/79
[2019-08-04] MEDS: NICOTINE 21 MG/24 HR PATCH TD SCH (10:10)
[2019-08-04] MEDS: amLODIPine 5 MG TAB PO SCH (10:10)
[2019-08-04] MEDS: DULoxetine 30 MG CAP PO SCH (10:10)
[2019-08-04] MEDS: DOCUSATE SODIUM 100 MG CAP PO SCH (10:10)
[2019-08-04] MEDS: clonazePAM 0.5 MG TAB PO SCH (10:11)
--- NOTE | 2019-08-04 12:52 | Discharge Summary ---
Providers - Providers Date of Admission: 07/29/19 21:16 Date of discharge: 08/04/19 Attending physician: MILENA ALICEA MD 07/31/19 09:49 Consult to Physician [CONS] Routine Comment: Consulting Provider: OSMIN LUDWIG Physician Instructions: Reason For Exam: Medical management of Geripsych pt Primary care physician: [employer] Hospitalization Reason for admission: Depressed and suicidal Condition: Stable Hospital course: The patient was provided inpatient psychiatric treatment with safe and supp ortive environment, group therapy, individual counseling, psychiatric medication, medication adjustment, adverse effect monitor, medical evaluation, medical treatment, social service assessment, family/social support meeting, placement assessment and psycho-education. The patients mood, anxiety, thoughts, stress management skill, cognition, impulse/anger control, motivation, understanding of disease, compliance to treatment and appreciation on family/social support are improved and stabilized. At the time of discharge, the patient had no suicidal ideas, no homicidal ideas, no aggressive thoughts, no endangering behavior and no debilitating adverse effects. Disposition: DC-01 TO HOME OR SELFCARE Allergies/Adverse Reactions: Allergies codeine Allergy (Verified 07/29/19 21:49) Unknown Vital Signs: Last Vital Signs Temp 98.4 F 08/04/19 09:45 Pulse 79 08/04/19 10:10 Resp 16 08/04/19 09:45 BP 122/79 08/04/19 10:10 Pulse Ox 96 08/03/19 19:38 Last Lab: Laboratory Last Values WBC 10.3 K/mm3 (4.5-11.0) 07/29/19 23:13 RBC 4.04 M/mm3 (3.65-5.03) 07/29/19 23:13 Hgb 13.9 gm/dl (10.1-14.3) 07/29/19 23:13 Hct 40.5 % (30.3-42.9) 07/29/19 23:13 MCV 100 fl (79-97) H 07/29/19 23:13 MCH 34 pg (28-32) H 07/29/19 23:13 MCHC 34 % (30-34) 07/29/19 23:13 RDW 14.4 % (13.2-15.2) 07/29/19 23:13 Plt Count 309 K/mm3 (140-440) 07/29/19 23:13 Lymph % (Auto) 25.1 % (13.4-35.0) 07/29/19 23:13 [place] % (Auto) 9.8 % (0.0-7.3) H 07/29/19 23:13 Eos % (Auto) 0.8 % (0.0-4.3) 07/29/19 23:13 Baso % (Auto) 0.6 % (0.0-1.8) 07/29/19 23:13 Lymph # 2.6 K/mm3 (1.2-5.4) 07/29/19 23:13 [place] # 1.0 K/mm3 (0.0-0.8) H 07/29/19 23:13 Eos # 0.1 K/mm3 (0.0-0.4) 07/29/19 23:13 Baso # 0.1 K/mm3 (0.0-0.1) 07/29/19 23:13 Seg Neutrophils % 63.7 % (40.0-70.0) 07/29/19 23:13 Seg Neutrophils # 6.6 K/mm3 (1.8-7.7) 07/29/19 23:13 Sodium 142 mmol/L (137-145) 07/29/19 23:13 Potassium 4.2 mmol/L (3.6-5.0) 07/29/19 23:13 Chloride 105.5 mmol/L (98-107) 07/29/19 23:13 Carbon Dioxide 22 mmol/L (22-30) 07/29/19 23:13 Anion Gap 19 mmol/L 07/29/19 23:13 BUN 18 mg/dL (7-17) H 07/29/19 23:13 Creatinine 1.0 mg/dL (0.7-1.2) 07/29/19 23:13 Estimated GFR 55 ml/min 07/29/19 23:13 BUN/Creatinine Ratio 18 % 07/29/19 23:13 Glucose 108 mg/dL (65-100) H 07/29/19 23:13 POC Glucose 109 (70-105) H 07/29/19 23:47 Hemoglobin A1c 5.5 % (4-6) 07/29/19 23:13 Calcium 9.4 mg/dL (8.4-10.2) 07/29/19 23:13 Total Bilirubin < 0.20 mg/dL (0.1-1.2) 07/29/19 23:13 AST 19 units/L (5-40) 07/29/19 23:13 ALT 12 units/L (7-56) 07/29/19 23:13 Alkaline Phosphatase 83 units/L (35-129) 07/29/19 23:13 Total Protein 6.8 g/dL (6.3-8.2) 07/29/19 23:13 Albumin 4.1 g/dL (3.9-5) 07/29/19 23:13 Albumin/Globulin Ratio 1.5 % 07/29/19 23:13 Triglycerides 131 mg/dL (2-149) 07/29/19 23:13 Cholesterol 165 mg/dL (50-199) 07/29/19 23:13 LDL Cholesterol Direct 82 mg/dL (50-130) 07/29/19 23:13 HDL Cholesterol 76 mg/dL (40-59) H 07/29/19 23:13 Cholesterol/HDL Ratio 2.17 % 07/29/19 23:13 Urine Color Yellow (Yellow) 07/30/19 08:05 Urine Turbidity Clear (Clear) 07/30/19 08:05 Urine pH 6.0 (5.0-7.0) 07/30/19 08:05 Ur Specific [place] 1.011 (1.003-1.030) 07/30/19 08:05 Urine Protein <15 mg/dl mg/dL (Negative) 07/30/19 08:05 Urine Glucose (UA) Neg mg/dL (Negative) 07/30/19 08:05 Urine Ketones Neg mg/dL (Negative) 07/30/19 08:05 Urine Blood Neg (Negative) 07/30/19 08:05 Urine Nitrite Neg (Negative) 07/30/19 08:05 Urine Bilirubin Neg (Negative) 07/30/19 08:05 Urine Urobilinogen < 2.0 mg/dL (<2.0) 07/30/19 08:05 Ur Leukocyte Esterase Neg (Negative) 07/30/19 08:05 Urine WBC (Auto) 1.0 /HPF (0.0-6.0) 07/30/19 08:05 Urine RBC (Auto) 1.0 /HPF (0.0-6.0) 07/30/19 08:05 U Epithel Cells (Auto) < 1.0 /HPF (0-13.0) 07/30/19 08:05 Urine Mucus Few /HPF 07/30/19 08:05 - Discharge Diagnoses (1) MDD (major depressive disorder), recurrent episode, severe Status: Acute Core Measure Documentation - Palliative Care Palliative Care/ Comfort Measures: Not Applicable - Core Measures Any of the following diagnoses?: none Exam - Constitutional Vitals: Temp Pulse Resp BP Pulse Ox 98.4 F 79 16 122/79 96 08/04/19 09:45 08/04/19 10:10 08/04/19 09:45 08/04/19 10:10 08/03/19 19:38 General appearance: Present: no acute distress, well-nourished - EENT Eyes: Present: PERRL, EOM intact ENT: hearing intact, clear oral mucosa - Neck Neck: Present: supple, normal ROM - Respiratory Respiratory effort: normal Plan Activity: advance as tolerated Weight Bearing Status: Weight Bear as Tolerated Follow up with: PRIMARY CARE,MD [Primary Care Provider] - 7 Days Prescriptions: traZODone [Desyrel] 50 mg PO QHS PRN #30 tablet PRN Reason: Insomnia Melatonin [Melatonin 5MG TAB] 10 mg PO QHS #30 tablet DULoxetine [Cymbalta] 60 mg PO QDAY #60 capsule Divalproex ER [Depakote ER] 500 mg PO HS #30 tablet Nicotine [Habitrol] 21 mg TD QDAY #30 patch clonazePAM [KlonoPIN] 0.25 mg PO BID #14 tablet hydrOXYzine PAMOATE [Vistaril] 50 mg PO Q6H PRN #60 capsule PRN Reason: Anxiety
== END 2019-08-04 12:15 | disposition home or self-care (01) | DRG 885 ==
LOC: 3A 17:50 → UNDOADMIN 17:50 → 5A 21:16
PROVIDERS: ADMIT Psychiatry & Neurology Psychiatry; ATTEND Psychiatry & Neurology Psychiatry
DX: F33.2 Major depressive disorder, recurrent severe without psychotic features (principal); R45.851 Suicidal ideations; I10 Essential (primary) hypertension; E78.00 Pure hypercholesterolemia, unspecified; F41.9 Anxiety disorder, unspecified; E03.9 Hypothyroidism, unspecified; G47.30 Sleep apnea, unspecified; Z88.5 Allergy status to narcotic agent; Z79.899 Other long term (current) drug therapy
CPT/HCPCS: 36415; 80053; 80061; 81001; 82962; 83036; 85025; G0378; A9270-GY; Q0177